=== PATIENT | female | born 1995 | race Caucasian/White ===

== ENCOUNTER 2016-10-19 20:33 | Emergency (ER) | payer BC ==
--- NOTE | 2016-10-19 21:15 | EDM.PDOC ---
ED HPI GENERAL MEDICAL PROBLEM - General Chief Complaint: Lower Extremity Injury/Pain Stated Complaint: left foot and ankle pain Time Seen by Provider: 10/19/16 20:55 - History of Present Illness INITIAL COMMENTS - FREE TEXT/NARRATIVE: Pt states just prior to arrival she was walking on a sidewalk and miss-stepped off of the curb causing her left ankle to roll. Pt did not hear it pop or crack but had pain right away. Onset Date: 10/19/16 Onset Time: 20:00 Location: Reports: Lower Extremity, Left (ankle) Quality: Reports: Sharp, Throbbing Severity: Severe Improves with: Reports: None Worsens with: Reports: None, Movement Left Ankle Pain Score (Numeric/FACES): 7 - Related Data Allergies Allergy/AdvReac Type Severity Reaction Status Date / Time doxycycline Allergy Rash Verified 10/19/16 20:40 Sulfa (Sulfonamide Allergy Rash Verified 10/19/16 20:40 Antibiotics) Home Meds: Home Meds . [No Known Home Meds] 10/19/16 [History] Past Medical History - Past Health History Medical/Surgical History: Denies Medical/Surgical History Social & Family History - Tobacco Use Smoking Status *Q: Current Every Day Smoker Years of Tobacco use: 7 Packs/Tins Daily: 0.3 Review of Systems - Review of Systems Review Of Systems: See Below Constitutional: Reports: No Symptoms Respiratory: Reports: No Symptoms Cardiovascular: Reports: No Symptoms GI/Abdominal: Reports: No Symptoms Musculoskeletal: Reports: Foot Pain Skin: Reports: No Symptoms Neurological: Reports: No Symptoms ED EXAM, GENERAL - Physical Exam Exam: See Below General Appearance: Alert, WD/WN, No Apparent Distress Respiratory/Chest: No Respiratory Distress, Lungs Clear, Normal Breath Sounds Cardiovascular: Normal Peripheral Pulses, Regular Rate, Rhythm, No Edema, No Gallop, No JVD, No Murmur, No Rub Extremities: Limited Range of Motion (severe discomfort of left foot, swelling) Neurological: Alert, Oriented Psychiatric: Normal Affect, Normal Mood Skin Exam: Warm, Dry, Intact ED TRAUMA EXTREMITY PROCEDURES - Splinting Left Pre-Procedure NV Status: Normal Post-Procedure NV Status: Normal Splint Material: Air Splint Provider Post-Splint Application NV Check: NV Status Normal, Good Position Complications: No Course - Vital Signs Last Recorded V/S: Last Vital Signs Temp 36.4 C 10/19/16 20:42 Pulse 98 10/19/16 20:42 Resp 18 10/19/16 20:42 BP 109/58 L 10/19/16 20:42 Pulse Ox 97 10/19/16 20:42 - Orders/Labs/Meds Orders: Active Orders 24 hr Category Date Time Status Communication Order [RC] DAILY Care 10/19/16 21:21 Ordered Communication Order [RC] DAILY Care 10/19/16 21:29 Ordered Ankle Min 3V Lt [CR] Routine Exams 10/19/16 21:11 Taken Ankle Min 3V Lt [CR] Stat Exams 10/19/16 21:06 Ordered Departure - Departure Time of Disposition: 21:33 Disposition: Home, Self-Care 01 Condition: Good Clinical Impression: Ankle sprain - Discharge Information Instructions: Ankle Sprain, [id number] Referrals: Lisa Hoffman, REFRIGERATING TECHNICIAN [Primary Care Provider] - 2 Weeks (please follow up in 2 weeks if not better or sooner if any complications and concerns arise ) Forms: ED Department Discharge - My Orders Last 24 Hours: My Active Orders 10/19/16 21:06 Ankle Min 3V Lt [CR] Stat 10/19/16 21:11 Ankle Min 3V Lt [CR] Routine 10/19/16 21:21 Communication Order [RC] DAILY 10/19/16 21:29 Communication Order [RC] DAILY - Assessment/Plan Last 24 Hours: My Active Orders 10/19/16 21:06 Ankle Min 3V Lt [CR] Stat 10/19/16 21:11 Ankle Min 3V Lt [CR] Routine 10/19/16 21:21 Communication Order [RC] DAILY 10/19/16 21:29 Communication Order [RC] DAILY
== END 2016-10-19 21:35 | disposition home or self-care (01) ==
LOC: VM.ED 20:33
DX: S93.402A Sprain of unspecified ligament of left ankle, initial encounter (principal); F17.210 Nicotine dependence, cigarettes, uncomplicated; Z88.2 Allergy status to sulfonamides; Z88.1 Allergy status to other antibiotic agents; W18.31XA Fall on same level due to stepping on an object, initial encounter
CPT/HCPCS: 73610-LT; 99283